=== PATIENT | male | born 1975 | race Caucasian/White ===

== ENCOUNTER 2018-09-21 10:32 | Emergency (ER) | payer BC ==
[~2018-09-21] VITALS: Wt 79.9 kg
[2018-09-21 10:34] VITALS: BP 140/78; PULSE 90; RESP 18
[2018-09-21] MEDS ORDERED: LIDOCAINE 1% (MPF) 5 ML VIAL INJ ONE (11:00)
[2018-09-21] MEDS ORDERED: DIPHTH/TET/ACEL PERTUSS (ADULT) 0.5 ML VIAL IM* ONE (11:00)
[2018-09-21] MEDS ORDERED: BACITRACIN 0.5%/ZINC 28.35 GM OINT TOP ONE (12:00)
--- NOTE | 2018-09-21 12:13 | ERD ---
ER Documentation Chief Complaint Chief Complaint RIGHT HAND LAC,POSSIBLE PIECE OF GLASS IN IT HPI 43-year-old male presenting with laceration to the right hand. Patient was a mirror in the mirror fell and broke. He sustained multiple abrasions and a larger laceration on his right dorsal hand. He does not recall his last tetanus shot. Grmwl-[id number]-[id number]. Denies other medical problems. NKDA. Surgical history denies. Social history denies ROS All systems reviewed and are negative except as per history of present illness. Allergies Allergies: Coded Allergies: No Known Allergy (Unverified , 09/21/18) PMhx/Soc Medical and Surgical Hx: pt denies Medical Hx, pt denies Surgical Hx Hx Alcohol Use: No Hx Substance Use: No Hx Tobacco Use: No Smoking Status: Never smoker FmHx Family History: No diabetes, No coronary disease, No other Physical Exam Vitals Vital Signs Date Temp Pulse Resp B/P (MAP) Pulse Ox O2 O2 Flow FiO2 Time Delivery Rate 09/21/18 98.1 90 18 140/78 99 10:34 (98) Physical Exam GENERAL: The patient is well-appearing, well-nourished, in no acute distress CHEST: Clear to auscultation bilaterally. There are no rales, wheezes or rhonchi. HEART: Regular rate and rhythm. No murmurs, clicks, rubs or gallops. EXTREMITIES: Equal pulses bilaterally. There is no peripheral clubbing, cy anosis or edema. No focal swelling or erythema. Full range of motion. Grossly neurovascularly intact. NEUROLOGIC: Motor strength in all 4 extremities with 5 out of 5 strength. Sensation grossly intact. SKIN: 1.5 cm laceration to the right dorsal hand. No active bleeding. No foreign body noted. Multiple some facial lacerations and abrasions noted to the hands of the dorsal aspect bilaterally. Results 24 hrs Current Medications Medications Dose Sig/Kira Start Time Status Last (Trade) Ordered Route PRN Stop Time Admin Dose Reason Admin Diphtheria/ 0.5 ml ONCE ONCE 09/21/18 DC 09/21/18 Tetanus/Acell IM* 11:00 10:57 Pertussis 09/21/18 11:01 (Adacel) Lidocaine 5 ml ONCE ONCE 09/21/18 DC (Xylocaine INJ 11:00 1% (Mpf)) 09/21/18 11:01 Bacitracin 1 applic ONCE ONCE 09/21/18 DC 09/21/18 (Bacitracin TOP 12:00 11:54 0.5%/ Zinc 09/21/18 12:01 Oint) Procedures/MDM DIAGNOSTIC IMAGING REPORT Patient: WIL SU : 1975 Age: 43 Sex: M MR #: [id number] DOS: 09/21/18 1045 Ordering MD: EMILIE ESTES PA-C Location: [facility] Room/Bed: PROCEDURE: XR Hand. CLINICAL INDICATION: Trauma. Foreign body. TECHNIQUE: AP oblique and lateral views of the right hand were obtained. COMPARISON: No prior studies are available for comparison. FINDINGS: There is normal mineralization. No acute fracture or dislocation is seen. There is a screw imbedded in the base of the first metacarpal. There are no significant degenerative changes. There is no significant soft tissue swelling. No radiopaque foreign body is present. IMPRESSION: Normal x-ray of the right hand x-ray . No radiodense foreign body is seen. Laceration Repair by me: Anesthesia: 1% lidocaine locally Location: Right Hand Tendon/Joint/Nerves: No injury Foreign body: None detected after copious irrigation and exploration Technique: Simple Interrupted Sutures Complexity: No subcutaneous sutures/mucosal repair/edge excision Post Closure Length: 1.5 cm Patient's bleeding was easily controlled in the department and there is no indication of anemia. No evidence of compartment syndrome, neurologic injury, vascular injury, open joint, tendon laceration, or foreign body. Patient is appropriate for outpatient follow up. 48 hour wound check. Scar minimization instructions given. MDM: 3-year-old male presents with laceration to right hand. I have low suspicion for acute fracture dislocation. I have low suspicion for retained foreign body. Patient had sutures placed without complication patient will return in 2 days for wound check in 7 days for a suture removal. I have low suspicion for tendon or ligament rupture or neuro deficit. Patient is discharged with strict ER precautions and told to follow-up with primary care within 1 to 2 days for close evaluation. All questions answered at discharge Departure Diagnosis: Primary Impression: Laceration Condition: Stable Patient Instructions: Laceration, Hand Referrals: COMM[facility]ITY CLINICS YOU HAVE RECEIVED A MEDICAL SCREENING EXAM AND THE RESULTS INDICATE THAT YOU DO NOT HAVE A CONDITION THAT REQUIRES URGENT TREATMENT IN THE EMERGENCY DEPARTMENT. FURTHER EVALUATION AND TREATMENT OF YOUR CONDITION CAN WAIT UNTIL YOU ARE SEEN IN YOUR DOCTORS OFFICE WITHIN THE NEXT 1-2 DAYS. IT IS YOUR RESPONSIBILITY TO MAKE AN APPOINTMENT FOR FOLOW-UP CARE. IF YOU HAVE A PRIMARY DOCTOR --you should call your primary doctor and schedule an appointment IF YOU DO NOT HAVE A PRIMARY DOCTOR YOU CAN CALL OUR PHYSICIAN REFERRAL HOTLINE AT IF YOU CAN NOT AFFORD TO SEE A PHYSICIAN YOU CAN CHOSE FROM THE FOLLOWING FORMERLY [facility] [address] [facility] [place] [address] [facility] [facility] [address] [facility] [address] [facility] [address] [facility]. [facility]. [address] Additional Instructions: FOLLOW UP WITH YOUR PRIMARY CARE PHYSICIAN TOMORROW.Return to this facility if you are not improving as expected. SHIV ESTES PA-C September 21, 2018 12:13
== END 2018-09-21 12:24 | disposition home or self-care (01) ==
LOC: FTE 10:32
DX: S61.411A Laceration without foreign body of right hand, initial encounter (principal); W25.XXXA Contact with sharp glass, initial encounter; Y92.9 Unspecified place or not applicable; Z23 Encounter for immunization
CPT/HCPCS: 90471; 90715